=== PATIENT | female | born 1970 | race Two or more races ===

== ENCOUNTER 2023-07-21 15:30 | Emergency (ER) | payer MEDICAID ==
[~2023-07-21] VITALS: Ht 165.1 cm; Wt 81.6 kg
[2023-07-21 15:58] VITALS: TEMP 98.3
[2023-07-21] MEDS ORDERED: KETOROLAC TROMETHAMINE INJ 30 MG/ML VIAL IM ONE (17:30)
[2023-07-21] MEDS ORDERED: KETOROLAC TROMETHAMINE INJ 30 MG/ML VIAL ONE (17:36)
[2023-07-21] MEDS ORDERED: IBUP-1955 PO (18:30)
[2023-07-21] MEDS ORDERED: CYCL5TAB PO (18:30)
[2023-07-21 19:21] VITALS: BP 140/90; O2SAT 99
== END 2023-07-21 19:22 | disposition home or self-care (01) ==
LOC: ER 15:41
DX: S33.5XXA Sprain of ligaments of lumbar spine, initial encounter (principal); M54.2 Cervicalgia; V43.52XA Car driver injured in collision with other type car in traffic accident, initial encounter; Y93.89 Activity, other specified; Y92.89 Other specified places as the place of occurrence of the external cause; Y99.8 Other external cause status
CPT/HCPCS: 99285; 72125; 96372; 73130; J1885